=== PATIENT | male | born 2000 | race Caucasian/White ===

== ENCOUNTER 2023-04-07 13:11 | Emergency (ER) | payer OTHER ==
[~2023-04-07] VITALS: Ht 167.6 cm; Wt 58.6 kg
[2023-04-07 14:56] LABS: Trichomonas vaginalis (AMP) NOT DETECTED (NEGATIVE)
[2023-04-07 15:20] LABS: GC DNA AMPLIFICATION NEGATIVE (NEGATIVE)
[2023-04-07 15:35] VITALS: BP 137/81; TEMP 97.8; O2SAT 100
[2023-04-07 17:29] LABS: GC DNA AMPLIFICATION NEGATIVE (NEGATIVE)
== END 2023-04-07 15:57 | disposition home or self-care (01) ==
LOC: M ED 13:11
DX: Z11.3 Encounter for screening for infections with a predominantly sexual mode of transmission (principal); F17.200 Nicotine dependence, unspecified, uncomplicated; Z91.010 Allergy to peanuts